=== PATIENT | female | born 1930 | race Caucasian/White ===

== ENCOUNTER → 2016-07-07 | Outpatient (CLI) | payer OTHER, MEDICAID ==
[2015-03-04 09:48] VITALS: BP 165/75
== END ==
LOC: RAD 13:23
PROVIDERS: ATTEND Internal Medicine
DX: Z12.31 Encounter for screening mammogram for malignant neoplasm of breast (principal)
CPT/HCPCS: 77067

== ENCOUNTER → 2016-10-19 | Outpatient (CLI) | payer OTHER, MEDICAID ==
[2015-03-04 09:48] VITALS: BP 165/75
[~2016-10-19] MED LIST: NS 100 ML IV 100 ML IV ONE
[2016-10-19 10:58] LABS: CREATININE 0.83 mg/dL (0.55-1.02)
--- NOTE | 2016-10-19 14:35 | CT ---
History: Acute pancreatitis with abdominal pain Study: Multi account planner CT abdomen with IV contrast Comparison: None Findings: The visualized lung bases are grossly clear. The liver and spleen and kidneys and adrenal glands are unremarkable. The gallbladder is surgically absent. There is mild biliary dilatation but no common duct stone is demonstrated. The common hepatic duct measures over centimeter in diameter. There is no pancreatic duct dilatation. The pancreas is normal in size without mass. Fat planes abou t the pancreas are normal. There is no ascites or adenopathy or aneurysm. There is no abnormal bowel distention or wall thickening or inflammation demonstrated. There is dextroscoliosis of the lumbar spine and severe diffuse degenerative disc disease. There is a moderate L1 compression fracture that appears old. It is unchanged from plain film examination of February 2015. Impression: 1. No evidence for acute disease. 2. Apparent physiologic dilatation of the biliary tree status post cholecystectomy Reported By:
== END | disposition home or self-care (01) ==
LOC: RAD 10:31
PROVIDERS: ATTEND Internal Medicine Gastroenterology
DX: K85.80 Other acute pancreatitis without necrosis or infection (principal)
CPT/HCPCS: 36415; 74160; 82565; 84520; A4222

== ENCOUNTER → 2016-11-03 | Outpatient (CLI) | payer OTHER, MEDICAID ==
[2015-03-04 09:48] VITALS: BP 165/75
--- NOTE | 2016-11-03 12:02 | NM ---
HISTORY: Abdominal pain. Clinical concern for gastroparesis/gastric emptying disorder. Nuclear medicine gastric emptying study. Findings: For the purposes of this gastric emptying study, 0.5 mCi of technetium 99m colloid was labeled to fo od and administered to the patient, orally. The patient was imaged in the supine position, and image s were obtained sequentially to evaluate gastric imaging. Regions of interest were selected over the stomach as well as over appropriate background regions prior to calculating the gastric emptying goodrich lf-time curve. Imaging was taken out to 90 minutes. The gastric emptying half time for this procedur e, as calculated, was actually accelerated (as the normal half-life ranges between 45 and 110 minute s, depending on the specific nuclear medicine laboratory standards). No radiotracer gastroesophageal reflux was identified on this examination. IMPRESSION: Accelerated gastric emptying half-time of 4 minutes. This finding can be seen with dumping syndrome, hyperthyroidism, pro-kinetic medications, etc. Please clinically correlate. Reported By:
== END ==
LOC: RAD 09:17
PROVIDERS: ATTEND Internal Medicine
DX: R11.2 Nausea with vomiting, unspecified (principal); R10.84 Generalized abdominal pain; E11.9 Type 2 diabetes mellitus without complications
CPT/HCPCS: 78264

== ENCOUNTER 2017-01-20 07:52 | Day surgery (SDC) | payer OTHER, MEDICAID ==
[2017-01-20] MEDS ORDERED: LR 1000 ML IV 1,000 ML IV ONE (08:02)
[2017-01-20] MEDS ORDERED: DIPRIVAN VIAL 20 ML ONE (10:37)
[2017-01-20 11:30] VITALS: BP 124/83
== END 2017-01-20 11:15 | disposition home or self-care (01) ==
LOC: SURG1 07:52
PROVIDERS: ATTEND Internal Medicine Gastroenterology
PROC: 0DJ08ZZ Inspection of Upper Intestinal Tract, Via Natural or Artificial Opening Endoscopic (ICD-10-PCS; principal; 2017-01-20 09:00)
PROC: 0DB68ZX Excision of Stomach, Via Natural or Artificial Opening Endoscopic, Diagnostic (ICD-10-PCS; principal; 2017-01-20 09:00)
PROC: 0DB88ZX Excision of Small Intestine, Via Natural or Artificial Opening Endoscopic, Diagnostic (ICD-10-PCS; principal; 2017-01-20 09:00)
DX: R10.13 Epigastric pain (principal); R11.0 Nausea; K21.9 Gastro-esophageal reflux disease without esophagitis; K20.8 Other esophagitis; K29.60 Other gastritis without bleeding; K85.90 Acute pancreatitis without necrosis or infection, unspecified
CPT/HCPCS: 99100; A4217; J3490; J7120

== ENCOUNTER 2018-09-12 15:25 | Inpatient (IN) ==
[2018-09-12 18:18] VITALS: BMI 27.9
[2018-09-12] MEDS ORDERED: TUSSIONEX PENNKINETIC SUSP PO PRN (18:20)
[2018-09-12] MEDS ORDERED: LEVAQUIN PREMIX IV 500 MG 500 MG/100 ML BAG IV SCH (18:20)
[2018-09-12] MEDS ORDERED: FORTAZ or TAZICEF VIAL INJ IVP SCH (18:20)
[2018-09-12] MEDS ORDERED: NS 1/2 1000 ML IV 1,000 ML ONE (18:39)
[2018-09-12] MEDS: NS 1/2 1000 ML IV 1,000 ML IV SCH (18:41)
[2018-09-12] MEDS: ROBITUSSIN DM PO SCH ×2 (18:42→20:41)
[2018-09-12] MEDS: VSL#3 PO SCH (18:42)
[2018-09-12] MEDS ORDERED: SALINE 3% 15 ML NEB TX NEB ONE (19:03)
--- NOTE | 2018-09-12 19:14 | DR.H&P ---
H&P - History & Physical for Day of: H&P Date: 09/12/18 - Chief Complaint Chief Complaint: C/C/C, FEVER - History of Present Illness History of Present Illness: IS A 87 YEAR OLD PATIENT OF OURS. SHE PRESENTED TO THE HOSPITAL A DIRECT ADMISSION DUE TO COMPLAINTS OF PERSISTENT COUGH, CONGESTION, SHORTNESS OF BREATH, AND FEVER FOR THE PAST WEEK. SHE REPORTS A PROGRESSIVE WORSENING OF SYMPTOMS DESPITE COMPLIANCE WITH BREATHING TREATMENTS CIPRO 500MG IV PO BID X 2 WEEKS AT HOME. ON ARRIVAL TO THE HOSPITAL, VITALS WERE: 97.9-69-18-98%-153/65. LABS WERE OBTAINED. ABNORMAL LAB VALUES INCLUDE THE FOLLOWING: HGB 11.1, HCT 33.3, BUN 19, GLUCOSE 108, AST 8, ALT 11, ALBUMIN 3.3. BLOOD CULTURES OBTAINED. WE WILL OBTAIN A SPUTUM CULTURE. SHE WAS STARTED ON 1/2NS AT 75ML/HR, LEVAQUIN 500MG IV DAILY, FORTAZ 1G IV Q8H, AND RESPIRATORY TREATMENTS FOR TREATMENT OF BRONCHOPNEUMONIA. OTHERWISE, WE PLAN TO FOLLOW UP WITH AM LABS AND CHEST XRAY AND CONTINUE TO MONITOR. - Past Medical History Past Medical History: Diabetes, Hypertension, Hypothyroidism - Past Surgical History Surgical History: Hysterectomy - Family History Family Medical History: Cancer, Sudden Cardiac , Hypertension - Social History Have you used tobacco products in the last 12 months: No Does any household member use tobacco: No Alcohol Use: None Drug Use: None Prescription drug monitoring program results: PDMP reviewed and no concerns identified - Medications Home Medications: MS CI Pigment Blue 63 [From Cymbalta] Allergy (Verified 09/12/18 18:18) MS Duloxetine [From Cymbalta] Allergy (Verified 09/12/18 18:18) MS Tetanus Toxoid [Tetanus Toxoid] Allergy (Verified 09/12/18 18:18) - Review of Systems Constitutional: Fever, Chills, Weakness Eyes: No Symptoms Reported ENT: No Symptoms Reported Respiratory: See HPI, Cough, Shortness of Breath, SOB with Excertion, Wheezing Cardiovascular: Light Headedness Gastrointestinal: No Symptoms Reported Genitourinary: No Symptoms Reported Musculoskeletal: No Symptoms Reported Skin: No Symptoms Reported Neurological: Weakness - Physical Exam Vital Signs: Temperature 97.9 F Pulse Rate [Right Brachial] 69 Pulse Rate 63 Respiratory Rate 18 Blood Pressure [Left Arm] 165/75 Blood Pressure [Right Arm] 153/65 Blood Pressure 124/83 O2 Sat by Pulse Oximetry 100 Oriented: Normal Eyes: Normal Ear: Normal Nose: Normal Throat: Normal Respiratory: Wheezes Throughout Cardiovascular: Normal. negative: S3, S4, Murmur : Normal Auscultation: Bowel Sounds: Normal Palpation: Normal Tenderness: Normal Skin: Normal Musculoskeletal: Normal Psychiatric: Normal Mood Description: Calm Affect: Normal Speech Pattern: Clear - Assessment/Plan (1) Bronchopneumonia Status: Acute Plan: PNEUMONIA PROTOCOL WITH IV FORTAZ, IV LEVAQUIN, RESPIRATORY TX, SUPPLEM ENTAL OXYGEN, CONTINUE TO MONITOR - Allergies Allergies/Adverse Reactions: Allergies Allergy/AdvReac Type Severity Reaction Status Date / Time duloxetine [From Cymbalta] Allergy Verified 09/13/18 00:47 Tetanus Vaccines and Toxoid Allergy Verified 09/13/18 00:47
[2018-09-12 19:16] LABS: BASOPHILS % (AUTO) 0.7 % (0.2-1.0); EOSINOPHILS # (AUTO) 0.3 x10^3/uL (0.0-0.2); EOSINOPHILS % (AUTO) 4.2 % (0.9-2.9); HEMATOCRIT 33.3 % (36.0-47.0); HEMOGLOBIN 11.1 g/dL (12.0-16.0); LYMPHOCYTES # (AUTO) 2.2 X10^3/uL (1.3-2.9); LYMPHOCYTES % (AUTO) 32.6 % (21.0-51.0); MEAN CORPUSCULAR HEMOGLOBIN 28.7 pg (27.0-34.0); MEAN CORPUSCULAR HGB CONC 33.4 g/dL (33.0-35.0); MEAN CORPUSCULAR VOLUME 85.9 fL (80.0-100.0); MONOCYTES # (AUTO) 0.5 x10^3/uL (0.3-0.8); MONOCYTES % (AUTO) 7.9 % (0.0-13.0); NEUTROPHILS # (AUTO) 3.7 x10^3/uL (2.2-4.8); NEUTROPHILS % (AUTO) 54.6 % (42.0-75.0); PLATELET COUNT 276 X10^3/uL (150.0-450.0); RED BLOOD COUNT 3.87 X10^6/uL (3.5-5.4); RED CELL DISTRIBUTION WIDTH 15.7 % (11.6-16.5); WHITE BLOOD COUNT 6.7 X10^3/uL (3.6-10.0)
[2018-09-12 19:25] LABS: ALANINE AMINOTRANSFERASE 11 Units/L (12-78); ALBUMIN 3.3 g/dL (3.4-5.0); ALKALINE PHOSPHATASE 68 Units/L (46-116); ASPARTATE AMINO TRANSFERASE 8 Units/L (15-37); BLOOD UREA NITROGEN 19 mg/dL (7-18); CALCIUM 10.1 mg/dL (8.5-10.1); CARBON DIOXIDE 27.4 mmol/L (21-32); CHLORIDE 105 mmol/L (98-107); COR CA(FOR HYPOALB) 10.7 mg/dL (8.5-10.1); CREATININE 0.98 mg/dL (0.55-1.02); SODIUM 143 mmol/L (136-145); eGFR NON BLACK RACES 57 (>60)
--- NOTE | 2018-09-12 20:06 | RAD ---
HISTORY: Pneumonia Study: Single view of the chest. Comparison: None. Findings: The cardiomediastinal silhouette is normal. No focal consolidations, pleural effusions or pneumothorax. Osseous structures demonstrate no acute abnormality. IMPRESSION: 1. No acute cardiopulmonary process. Reported By:
[2018-09-12] MEDS: FORTAZ or TAZICEF VIAL INJ IVP SCH (20:41)
[2018-09-12] MEDS: LEVAQUIN PREMIX IV 500 MG 500 MG/100 ML BAG IV SCH (20:41)
[2018-09-12] MEDS: NEURONTIN CAP 300 MG PO PRN (20:55)
[2018-09-12] MEDS: DUONEB 0.5 MG/3 MG NEB SCH (21:16)
[2018-09-13] MEDS ORDERED: NORCO 5/325 MG TAB ONE (00:50)
[2018-09-13] MEDS: NORCO 5/325 MG TAB PO PRN ×2 (00:59→21:09)
[2018-09-13] MEDS ORDERED: NS 1/2 1000 ML IV 1,000 ML ONE (04:32)
[2018-09-13] MEDS: FORTAZ or TAZICEF VIAL INJ IVP SCH ×3 (05:52→21:10)
[2018-09-13 06:28] LABS: BASOPHILS % (AUTO) 0.4 % (0.2-1.0); EOSINOPHILS # (AUTO) 0.3 x10^3/uL (0.0-0.2); EOSINOPHILS % (AUTO) 4.2 % (0.9-2.9); HEMATOCRIT 29.2 % (36.0-47.0); HEMOGLOBIN 9.8 g/dL (12.0-16.0); LYMPHOCYTES # (AUTO) 2.5 X10^3/uL (1.3-2.9); LYMPHOCYTES % (AUTO) 38.3 % (21.0-51.0); MEAN CORPUSCULAR HEMOGLOBIN 28.6 pg (27.0-34.0); MEAN CORPUSCULAR HGB CONC 33.6 g/dL (33.0-35.0); MEAN CORPUSCULAR VOLUME 84.9 fL (80.0-100.0); MEAN PLATELET VOLUME 8.6 fL (7.4-11.0); MONOCYTES # (AUTO) 0.5 x10^3/uL (0.3-0.8); MONOCYTES % (AUTO) 7.2 % (0.0-13.0); NEUTROPHILS # (AUTO) 3.2 x10^3/uL (2.2-4.8); NEUTROPHILS % (AUTO) 49.9 % (42.0-75.0); PLATELET COUNT 236 X10^3/uL (150.0-450.0); RED BLOOD COUNT 3.44 X10^6/uL (3.5-5.4); RED CELL DISTRIBUTION WIDTH 15.3 % (11.6-16.5); WHITE BLOOD COUNT 6.5 X10^3/uL (3.6-10.0)
[2018-09-13 06:42] LABS: ALANINE AMINOTRANSFERASE 10 Units/L (12-78); ALBUMIN 2.8 g/dL (3.4-5.0); ALKALINE PHOSPHATASE 56 Units/L (46-116); ASPARTATE AMINO TRANSFERASE 8 Units/L (15-37); BLOOD UREA NITROGEN 17 mg/dL (7-18); CALCIUM 9.2 mg/dL (8.5-10.1); CARBON DIOXIDE 26.2 mmol/L (21-32); CHLORIDE 105 mmol/L (98-107); COR CA(FOR HYPOALB) 10.2 mg/dL (8.5-10.1); CREATININE 0.91 mg/dL (0.55-1.02); SODIUM 141 mmol/L (136-145); TOTAL PROTEIN 6.1 g/dL (6.4-8.2); eGFR NON BLACK RACES > 60 (>60)
[2018-09-13] MEDS: DUONEB 0.5 MG/3 MG NEB SCH ×4 (08:20→20:36)
--- NOTE | 2018-09-13 08:28 | RAD ---
HISTORY: Pneumonia Study: Single-view chest, done portably Comparison: 09/12/2018. Findings: Trachea is midline. There is cardiomegaly with aortic uncoiling . Very mild bronchitic changes are present bilaterally with peribronchial cuffing. No consolidation, CHF, pleural fluid or pneumothorax is seen. No acute osseous changes are seen. IMPRESSION: Hypertensive configuration. Very mild bronchitic changes are present bilaterally without consolidation or CHF. Reported By:
[2018-09-13] MEDS ORDERED: PHARMACY CONSULT - DOSE _____ XX SCH (09:00)
[2018-09-13] MEDS: ROBITUSSIN DM PO SCH ×4 (09:48→21:09)
[2018-09-13] MEDS: VSL#3 PO SCH (09:49)
[2018-09-13] MEDS: NS 1/2 1000 ML IV 1,000 ML IV SCH (09:49)
[2018-09-13] MEDS: PROGESTERONE MICRONIZED 200 MG PO SCH ×2 (11:00→16:26)
[2018-09-13] MEDS: ALBUMIN HUMAN 25%- 100 ML 100 ML IV SCH (12:00)
[2018-09-13] MEDS: PROCALAMINE 3 % 1,000 ML IV SCH (12:00)
[2018-09-13] MEDS: NEURONTIN CAP 300 MG PO PRN ×2 (12:01→21:11)
[2018-09-13] MEDS: WELCHOL PO SCH ×2 (12:02→21:10)
[2018-09-13] MEDS: PriLOSEC PO SCH ×2 (12:02→21:10)
[2018-09-13] MEDS: REGLAN TAB 10 MG PO SCH ×3 (12:03→21:11)
[2018-09-13] MEDS: ASPIRIN 81 MG CHEWTAB PO SCH (12:03)
[2018-09-13] MEDS: XARELTO PO SCH ×2 (12:04→21:11)
[2018-09-13] MEDS: COZAAR PO SCH (12:05)
[2018-09-13] MEDS: MAXZIDE 37.5/25 MG PO SCH (12:06)
--- NOTE | 2018-09-13 12:17 | VAS ---
Exam: Carotid Doppler exam History: 87-year-old female with ataxia. Evaluate for possible carotid artery stenosis. Comparison: None Findings: Mild degree of plaque is present in both carotid systems. On the right, peak systolic velocities in cm/sec of the right internal and common carotid arteries measure 44 and 88 respectively. The greatest ICA/CCA ratio on the right is 0.50 On the left, peak systolic velocities in cm/sec of the left internal and common carotid arteries measure 40 and 83 respectively. The greatest ICA/CCA ratio on the left is 0.48 Antegrade flow is documented in patent vertebral arteries bilaterally. Impression: No hemodynamically significant carotid stenosis is seen on either side. Reported By:
[2018-09-13] MEDS: COSOPT OPTH OP SCH ×2 (14:51→21:50)
--- NOTE | 2018-09-13 14:54 | MRI ---
MRI brain without contrast Indication: Altered mental status, weakness, ataxia Comparison: 10/18/2012 Technique: Multiplanar, multisequence MR images of the brain were obtained without contrast. Findings: There is age-appropriate generalized cortical involution with concomitant ventricular and sulcal enlargement, similar to prior. There is no evidence for acute or subacute infarct. There is no acute bleed, mass, mass effect, or abnormal extra-axial collection. The major intracranial flow voids are noted. The orbits appear unremarkable. There is minimal bilateral maxillary sinus mucosal thickening, without fluid level. Impression: No acute intracranial abnormality or significant change from prior. Reported By:
[2018-09-13] MEDS: PATIENT'S HOME MEDICATION (Mirabegron [Myrbetriq] 50 MG) PO SCH (16:26)
[2018-09-13] MEDS: SYNTHROID 100 mcg TAB PO SCH (17:58)
[2018-09-13] MEDS: HumuLIN R SUBCUT PRN ×2 (17:59→21:13)
--- NOTE | 2018-09-13 19:37 | PCM.PROG ---
Progress Note - Progress Note for Day of Date of Exam: 09/13/18 - Subjective Subjective: WAS ADMITTED FOR TREATMENT OF BRONCHOPNEUMONIA. TODAY, SHE IS ALERT AND ORIENTED, LYING IN BED ON MORNING ROUNDS. SHE CONTINUES WITH COMPLAINTS OF A PERSISTENT COUGH AND NAUSEA. SHE STATES THAT COUGH HAS BEEN NON- PRODUCTIVE THROUGHOUT THE NIGHT. SHE ALSO CONTINUES WITH SHORTNESS OF BREATH. PATIENT REPORTS WEAKNESS, DIZZINESS, AND UNSTEADY GAIT FOR THE PAST FEW WEEKS. SHE REPORTS NEARLY PASSING OUT AT HOME SEVERAL TIMES. ON EXAMINATION, HEART IS REGULAR IN RATE AND RHYTHM. BILATERAL LUNGS ARE NOTED WITH SCATTERED WHEEZING. ABDOMEN IS ROUND, SOFT, AND NON-TENDER WITH NORMAL BOWEL SOUNDS NOTED IN ALL QUADRANTS. HER VITALS THIS MORNING ARE: 98.0-68-18-96%-144/74. LABS WERE OBTA INED. ABNORMAL LAB VALUES INCLUDE THE FOLLOWING: HGB 11.1, HCT 33.3, BUN 19, GLUCOSE 108, AST 8, ALT 11, ALBUMIN 3.3. BLOOD CULTURES ARE PENDING. A CHEST XRAY WAS OBTAINED TODAY AND REVEALED: Hypertensive configuration. Very mild bronchitic changes are present bilaterally without consolidation or CHF. SHE IS CURRENTLY RECEIVING IV FLUIDS, IV ANTIBIOTICS, AND RESPIRATORY TREATMENTS. TODAY, WE WILL START PROCAL AND ALBUMIN DUE TO PROTEIN DEFICIENCY. WE WILL OBTAIN A GASTRIC EMPTY STUDY, BRAIN MRI, ECHO, AND CAROTID DOPPLER. OTHERWISE, WE WILL FOLLOW UP WITH AM LABS AND CONTINUE TO [facility]. - Past Medical Family Social History Past Med/Fam/Surg Hx: No changes since H&P Allergies: Allergies duloxetine [From Cymbalta] Allergy (Verified 09/13/18 00:47) Tetanus Vaccines and Toxoid Allergy (Verified 09/13/18 00:47) - Review of Systems ROS: No change since H&P - Vital Signs and I&O's Vital Signs: Temperature 98.1 F Pulse Rate [Right Brachial] 66 Pulse Rate 63 Respiratory Rate 18 Blood Pressure [Left Arm] 165/75 Blood Pressure [Right Arm] 138/71 Blood Pressure 124/83 O2 Sat by Pulse Oximetry 100 Intake and Output: Intake & Output 09/11/18 09/12/18 09/13/18 09/14/18 11:59 11:59 11:59 11:59 Intake Total 1575 / 1575 1373 / 1373 Balance 1575 / 1575 1373 / 1373 - Physical Exam Oriented: Normal Eyes: Normal Ear: Normal Nose: Normal Throat: Normal Respiratory: Generalized, Wheezes Cardiovascular: Normal. negative: S3, S4, Murmur : Normal Auscultation: Bowel Sounds: Normal Palpation: Normal Tenderness: Normal, Diffuse Skin: Normal Musculoskeletal: Normal Psychiatric: Normal Mood Description: Calm Affect: Normal Speech Pattern: Clear - Laboratory and Diagnostics Result Diagrams: 09/13/18 05:13 09/13/18 05:13 Labs: Laboratory WBC 6.5 X10^3/uL (3.6-10.0) 09/13/18 05:13 RBC 3.44 X10^6/uL (3.5-5.4) L 09/13/18 05:13 Hgb 9.8 g/dL (12.0-16.0) L 09/13/18 05:13 Hct 29.2 % (36.0-47.0) L 09/13/18 05:13 MCV 84.9 fL (80.0-100.0) 09/13/18 05:13 MCH 28.6 pg (27.0-34.0) 09/13/18 05:13 MCHC 33.6 g/dL (33.0-35.0) 09/13/18 05:13 RDW 15.3 % (11.6-16.5) 09/13/18 05:13 Plt Count 236 X10^3/uL (150.0-450.0) 09/13/18 05:13 MPV 8.6 fL (7.4-11.0) 09/13/18 05:13 Neut % (Auto) 49.9 % (42.0-75.0) 09/13/18 05:13 Lymph % (Auto) 38.3 % (21.0-51.0) 09/13/18 05:13 [place] % (Auto) 7.2 % (0.0-13.0) 09/13/18 05:13 Eos % (Auto) 4.2 % (0.9-2.9) H 09/13/18 05:13 Baso % (Auto) 0.4 % (0.2-1.0) 09/13/18 05:13 Neut # (Auto) 3.2 x10^3/uL (2.2-4.8) 09/13/18 05:13 Lymph # (Auto) 2.5 X10^3/uL (1.3-2.9) 09/13/18 05:13 [place] # (Auto) 0.5 x10^3/uL (0.3-0.8) 09/13/18 05:13 Eos # (Auto) 0.3 x10^3/uL (0.0-0.2) H 09/13/18 05:13 Baso # (Auto) 0.0 X10^3/uL (0.0-0.1) 09/13/18 05:13 Absolute Nucleated RBC 0.0 /100WBC 09/13/18 05:13 Sodium 141 mmol/L (136-145) 09/13/18 05:13 Corrected Sodium TNP 09/13/18 05:13 Potassium 3.8 mmol/L (3.5-5.1) 09/13/18 05:13 Chloride 105 mmol/L (98-107) 09/13/18 05:13 Carbon Dioxide 26.2 mmol/L (21-32) 09/13/18 05:13 BUN 17 mg/dL (7-18) 09/13/18 05:13 Creatinine 0.91 mg/dL (0.55-1.02) 09/13/18 05:13 Est GFR (MDRD) Af Amer > 60 (>60) 09/13/18 05:13 Est GFR (MDRD) Non-Af > 60 (>60) 09/13/18 05:13 Glucose 74 mg/dL (65-99) 09/13/18 05:13 POC Glucose (mg/dL) 80 mg/dL (65-99) 09/13/18 05:47 Calcium 9.2 mg/dL (8.5-10.1) 09/13/18 05:13 Corrected Calcium 10.2 mg/dL (8.5-10.1) H 09/13/18 05:13 Total Bilirubin 0.40 mg/dL (0.2-1.0) 09/13/18 05:13 AST 8 Units/L (15-37) L 09/13/18 05:13 ALT 10 Units/L (12-78) L 09/13/18 05:13 Alkaline Phosphatase 56 Units/L (46-116) 09/13/18 05:13 Total Protein 6.1 g/dL (6.4-8.2) L 09/13/18 05:13 Albumin 2.8 g/dL (3.4-5.0) L 09/13/18 05:13 Globulin 3.3 g/dL (2.5-4.5) 09/13/18 05:13 Albumin/Globulin Ratio 0.8 Ratio (1.1-2.1) L 09/13/18 05:13 - Plan (1) Bronchopneumonia Status: Acute Plan: PNEUMONIA PROTOCOL WITH IV FORTAZ, IV LEVAQUIN, RESPIRATORY TX, SUPPLEMENTAL OXYGEN, CONTINUE TO MONITOR (2) Ataxia Status: Chronic Plan: OBTAIN BRAIN MRI, CAROTID, ECHO, CONTINUE TO MONITOR (3) Dizziness Status: Acute (4) Generalized weakness Status: Acute (5) Protein deficiency Status: Acute Plan: PROCAL IV, ALBUMIN 25% IV DAILY, CONTINUE TO MONITOR (6) Diabetes mellitus, type 2 Status: Chronic Qualifiers: Diabetes mellitus complication status: with skin complications Diabetes mellitus complication detail: with foot ulcer Qualified Code(s): E11.621 - Type 2 diabetes mellitus with foot ulcer Plan: CONTINUE HOME MEDS, GASTRIC EMPTYING, MONITOR OTBS
[2018-09-13] MEDS: ZOCOR TAB 40 MG PO SCH (21:12)
[2018-09-13] MEDS: SNACK - Diabetic Appropriate PO SCH (21:12)
[2018-09-13] MEDS: XALATAN OP SCH (21:12)
[2018-09-13] MEDS: LEVAQUIN PREMIX IV 500 MG 500 MG/100 ML BAG IV SCH (21:51)
[2018-09-14] MEDS ORDERED: NS 1/2 1000 ML IV 1,000 ML ONE ×2 (02:47→20:45)
[2018-09-14] MEDS: NS 1/2 1000 ML IV 1,000 ML IV SCH ×4 (03:28→20:55)
[2018-09-14] MEDS: FORTAZ or TAZICEF VIAL INJ IVP SCH ×3 (04:50→20:57)
[2018-09-14] MEDS: REGLAN TAB 10 MG PO SCH ×4 (06:08→20:57)
--- NOTE | 2018-09-14 06:13 | RAD ---
HISTORY: Shortness of breath Study: Chest AP portable Comparison: 09/13/2018 Findings: The heart is enlarged. No congestive heart failure is noted. The lungs are free of acute alveolar infiltrates. No pleural effusions are identified. The bony thorax is unremarkable. IMPRESSION: Continued cardiomegaly without congestive heart failure No acute infiltrates Reported By:
[2018-09-14 06:48] LABS: BASOPHILS % (AUTO) 0.6 % (0.2-1.0); EOSINOPHILS # (AUTO) 0.3 x10^3/uL (0.0-0.2); EOSINOPHILS % (AUTO) 4.8 % (0.9-2.9); HEMATOCRIT 27.1 % (36.0-47.0); HEMOGLOBIN 9.2 g/dL (12.0-16.0); LYMPHOCYTES # (AUTO) 1.9 X10^3/uL (1.3-2.9); LYMPHOCYTES % (AUTO) 31.9 % (21.0-51.0); MEAN CORPUSCULAR HEMOGLOBIN 29.1 pg (27.0-34.0); MEAN CORPUSCULAR HGB CONC 34.1 g/dL (33.0-35.0); MEAN CORPUSCULAR VOLUME 85.3 fL (80.0-100.0); MEAN PLATELET VOLUME 8.6 fL (7.4-11.0); MONOCYTES # (AUTO) 0.4 x10^3/uL (0.3-0.8); NEUTROPHILS # (AUTO) 3.3 x10^3/uL (2.2-4.8); NEUTROPHILS % (AUTO) 55.7 % (42.0-75.0); PLATELET COUNT 218 X10^3/uL (150.0-450.0); RED BLOOD COUNT 3.17 X10^6/uL (3.5-5.4); RED CELL DISTRIBUTION WIDTH 15.5 % (11.6-16.5)
[2018-09-14 07:18] LABS: ALANINE AMINOTRANSFERASE 9 Units/L (12-78); ALKALINE PHOSPHATASE 48 Units/L (46-116); ASPARTATE AMINO TRANSFERASE 12 Units/L (15-37); BLOOD UREA NITROGEN 12 mg/dL (7-18); CALCIUM 9.3 mg/dL (8.5-10.1); CARBON DIOXIDE 25.2 mmol/L (21-32); CHLORIDE 106 mmol/L (98-107); COR CA(FOR HYPOALB) 10.1 mg/dL (8.5-10.1); COR NA(FOR HYPERGLY) 143 mmol/L (136-145); CREATININE 0.96 mg/dL (0.55-1.02); SODIUM 142 mmol/L (136-145); TOTAL PROTEIN 6.2 g/dL (6.4-8.2); eGFR NON BLACK RACES 59 (>60)
[2018-09-14] MEDS: DUONEB 0.5 MG/3 MG NEB SCH ×2 (09:03→12:29)
[2018-09-14] MEDS: COSOPT OPTH OP SCH ×2 (10:09→20:59)
[2018-09-14] MEDS: PriLOSEC PO SCH ×2 (10:10→20:57)
[2018-09-14] MEDS: ALBUMIN HUMAN 25%- 100 ML 100 ML IV SCH (10:10)
[2018-09-14] MEDS: ROBITUSSIN DM PO SCH ×4 (10:11→20:57)
[2018-09-14] MEDS: XARELTO PO SCH ×2 (10:11→20:56)
[2018-09-14] MEDS: MAXZIDE 37.5/25 MG PO SCH (10:11)
[2018-09-14] MEDS: NEURONTIN CAP 300 MG PO PRN ×2 (10:11→20:57)
[2018-09-14] MEDS: VSL#3 PO SCH (10:11)
[2018-09-14] MEDS: WELCHOL PO SCH ×2 (10:11→20:57)
[2018-09-14] MEDS: COZAAR PO SCH (10:13)
[2018-09-14] MEDS: ASPIRIN 81 MG CHEWTAB PO SCH (10:14)
[2018-09-14] MEDS: PATIENT'S HOME MEDICATION (Mirabegron [Myrbetriq] 50 MG) PO SCH (12:37)
[2018-09-14] MEDS: PROGESTERONE MICRONIZED 200 MG PO SCH ×2 (12:38→19:21)
[2018-09-14] MEDS: SYNTHROID 100 mcg TAB PO SCH (17:06)
[2018-09-14] MEDS: XOPENEX 1.25 MG/3 ML NEBULE NEB SCH (17:15)
[2018-09-14] MEDS: SNACK - Diabetic Appropriate PO SCH (20:45)
[2018-09-14] MEDS: PROCALAMINE 3 % 1,000 ML IV SCH (20:56)
[2018-09-14] MEDS: ZOCOR TAB 40 MG PO SCH (20:57)
[2018-09-14] MEDS: HumuLIN R SUBCUT PRN (20:58)
[2018-09-14] MEDS: XALATAN OP SCH (20:59)
[2018-09-14] MEDS: LEVAQUIN PREMIX IV 500 MG 500 MG/100 ML BAG IV SCH (21:01)
[2018-09-15] MEDS: XOPENEX 1.25 MG/3 ML NEBULE NEB SCH ×2 (00:54→05:05)
[2018-09-15] MEDS: NS 1/2 1000 ML IV 1,000 ML IV SCH ×2 (02:27→02:28)
[2018-09-15] MEDS: FORTAZ or TAZICEF VIAL INJ IVP SCH (04:30)
[2018-09-15] MEDS: REGLAN TAB 10 MG PO SCH (05:55)
--- NOTE | 2018-09-15 06:02 | RAD ---
Chest, one view Indication: Shortness of breath Comparison: 09/14/2018 Findings: Cardiac silhouette is borderline enlarged without congestive failure. No focal infiltrate or significant effusion is identified. No pneumothorax. Impression: Mild cardiomegaly without acute chest process. Reported By:
[2018-09-15 06:06] LABS: BASOPHILS % (AUTO) 0.5 % (0.2-1.0); EOSINOPHILS # (AUTO) 0.4 x10^3/uL (0.0-0.2); HEMOGLOBIN 10.3 g/dL (12.0-16.0); LYMPHOCYTES # (AUTO) 2.1 X10^3/uL (1.3-2.9); LYMPHOCYTES % (AUTO) 26.8 % (21.0-51.0); MEAN CORPUSCULAR HGB CONC 34.2 g/dL (33.0-35.0); MEAN CORPUSCULAR VOLUME 84.8 fL (80.0-100.0); MEAN PLATELET VOLUME 8.5 fL (7.4-11.0); MONOCYTES # (AUTO) 0.4 x10^3/uL (0.3-0.8); MONOCYTES % (AUTO) 5.4 % (0.0-13.0); NEUTROPHILS # (AUTO) 4.8 x10^3/uL (2.2-4.8); NEUTROPHILS % (AUTO) 62.3 % (42.0-75.0); PLATELET COUNT 232 X10^3/uL (150.0-450.0); RED BLOOD COUNT 3.54 X10^6/uL (3.5-5.4); RED CELL DISTRIBUTION WIDTH 15.7 % (11.6-16.5); WHITE BLOOD COUNT 7.7 X10^3/uL (3.6-10.0)
[2018-09-15 06:28] LABS: ALANINE AMINOTRANSFERASE 9 Units/L (12-78); ALBUMIN 3.4 g/dL (3.4-5.0); ALKALINE PHOSPHATASE 51 Units/L (46-116); ASPARTATE AMINO TRANSFERASE 6 Units/L (15-37); BLOOD UREA NITROGEN 13 mg/dL (7-18); CALCIUM 9.9 mg/dL (8.5-10.1); CARBON DIOXIDE 25.9 mmol/L (21-32); CHLORIDE 105 mmol/L (98-107); COR NA(FOR HYPERGLY) 143 mmol/L (136-145); CREATININE 0.91 mg/dL (0.55-1.02); SODIUM 141 mmol/L (136-145); TOTAL PROTEIN 6.8 g/dL (6.4-8.2); eGFR NON BLACK RACES > 60 (>60)
[2018-09-15] MEDS: ALBUMIN HUMAN 25%- 100 ML 100 ML IV SCH (08:38)
[2018-09-15] MEDS: COZAAR PO SCH (08:39)
[2018-09-15] MEDS: PriLOSEC PO SCH (08:39)
[2018-09-15] MEDS: VSL#3 PO SCH (08:39)
[2018-09-15] MEDS: MAXZIDE 37.5/25 MG PO SCH (08:39)
[2018-09-15] MEDS: WELCHOL PO SCH ×2 (08:39→08:44)
[2018-09-15] MEDS: ROBITUSSIN DM PO SCH ×2 (08:39→08:53)
[2018-09-15] MEDS: XARELTO PO SCH (08:40)
[2018-09-15] MEDS: ASPIRIN 81 MG CHEWTAB PO SCH (08:40)
[2018-09-15] MEDS: PATIENT'S HOME MEDICATION (Mirabegron [Myrbetriq] 50 MG) PO SCH (08:52)
[2018-09-15] MEDS: COSOPT OPTH OP SCH (08:53)
[2018-09-15] MEDS: PROGESTERONE MICRONIZED 200 MG PO SCH (08:53)
[2018-09-15 11:22] VITALS: BP 149/65
== END 2018-09-15 12:15 | disposition home or self-care (01) | DRG 195 ==
LOC: MED/SURG 17:29
PROVIDERS: ADMIT Internal Medicine; ATTEND Internal Medicine
DX: E11.65 Type 2 diabetes mellitus with hyperglycemia; J18.0 Bronchopneumonia, unspecified organism; E03.8 Other specified hypothyroidism; I10 Essential (primary) hypertension; R26.89 Other abnormalities of gait and mobility
CPT/HCPCS: 36415; 70551; 71010; 71045; 80053; 85025; 87040; 93306; 93880; 94640; 94760; 97110; 97162; 97166; 97535; A4222; B5200; P9047; J0713; J1815; J1956; J7620

== ENCOUNTER 2022-07-03 17:25 | Observation (INO) ==
--- NOTE | 2022-07-03 17:45 | DR.EXTPAIN ---
HPI Time seen Time Seen by Provider: 07/03/22 17:43 HPI Comment HPI Comment: PATIENT IS 89YR OLD FEMALE IN ER VIA EMS AFTER FALLINH AT HOME TWICE IN Nurses notes reviewed Nurses Notes Review: Yes PMH PMH Past Medical History: Diabetes, Hypertension and Hypothyroidism Past Surgical History: Yes Surgical History: Hysterectomy Family History Family Medical History: Cancer, Sudden Cardiac and Hypertension Social History Do you use any recreational Drugs:: No PE Vital Signs Vitals: Temperature 98.5 F Pulse Rate 82 Respiratory Rate 20 Blood Pressure [Left Arm] 160/82 Blood Pressure [Right Arm] 149/65 Blood Pressure 162/67 O2 Sat by Pulse Oximetry 98 ROR Labs Reviewed Result Diagrams: 07/03/22 18:38 07/03/22 18:38 Laboratory: WBC 6.3 X10^3/uL (3.6-10.0) 07/03/22 18:38 RBC 3.63 X10^6/uL (3.5-5.4) 07/03/22 18:38 Hgb 9.2 g/dL (12.0-16.0) L 07/03/22 18:38 Hct 27.4 % (36.0-47.0) L 07/03/22 18:38 MCV 75.5 fL (80.0-100.0) L 07/03/22 18:38 MCH 25.3 pg (27.0-34.0) L 07/03/22 18:38 MCHC 33.4 g/dL (33.0-35.0) 07/03/22 18:38 RDW 18.3 % (11.6-16.5) H 07/03/22 18:38 Plt Count 134 X10^3/uL (150.0-450.0) L 07/03/22 18:38 MPV 9.5 fL (7.4-11.0) 07/03/22 18:38 Neut % (Auto) 80.3 % (42.0-75.0) H 07/03/22 18:38 Lymph % (Auto) 15.9 % (21.0-51.0) L 07/03/22 18:38 [place] % (Auto) 3.5 % (0.0-13.0) 07/03/22 18:38 Eos % (Auto) 0.1 % (0.9-2.9) L 07/03/22 18:38 Baso % (Auto) 0.2 % (0.2-1.0) 07/03/22 18:38 Neut # (Auto) 5.0 x10^3/uL (2.2-4.8) H 07/03/22 18:38 Lymph # (Auto) 1.0 X10^3/uL (1.3-2.9) L 07/03/22 18:38 [place] # (Auto) 0.2 x10^3/uL (0.3-0.8) L 07/03/22 18:38 Eos # (Auto) 0.0 x10^3/uL (0.0-0.2) 07/03/22 18:38 Baso # (Auto) 0.0 X10^3/uL (0.0-0.1) 07/03/22 18:38 Absolute Nucleated RBC 0.0 /100WBC 07/03/22 18:38 Sodium 142 mmol/L (136-145) 07/03/22 18:38 Corrected Sodium TNP 07/03/22 18:38 Potassium 3.0 mmol/L (3.5-5.1) L 07/03/22 18:38 Chloride 106 mmol/L (98-107) 07/03/22 18:38 Carbon Dioxide 25.7 mmol/L (21-32) 07/03/22 18:38 BUN 27 mg/dL (7-18) H 07/03/22 18:38 Creatinine 1.46 mg/dL (0.55-1.02) H 07/03/22 18:38 Est GFR (MDRD) Af Amer 43 (>60) L 07/03/22 18:38 Est GFR (MDRD) Non-Af 36 (>60) L 07/03/22 18:38 Glucose 43 mg/dL (65-99) L* 07/03/22 18:38 Calcium 8.3 mg/dL (8.5-10.1) L 07/03/22 18:38 Corrected Calcium 9.2 mg/dL (8.5-10.1) 07/03/22 18:38 Total Bilirubin 0.50 mg/dL (0.2-1.0) 07/03/22 18:38 AST 44 Units/L (15-37) H 07/03/22 18:38 ALT 21 Units/L (12-78) 07/03/22 18:38 Alkaline Phosphatase 46 Units/L (46-116) 07/03/22 18:38 Creatine Kinase 944 Units/L (26-192) H 07/03/22 18:38 Troponin I High Sens 47.7 ng/L (4.0-60.0) 07/03/22 18:38 Total Protein 6.5 g/dL (6.4-8.2) 07/03/22 18:38 Albumin 2.9 g/dL (3.4-5.0) L 07/03/22 18:38 Globulin 3.6 g/dL (2.5-4.5) 07/03/22 18:38 Albumin/Globulin Ratio 0.8 Ratio (1.1-2.1) L 07/03/22 18:38 Amylase 83 Units/L (25-115) 07/03/22 18:38 Lipase 460 Units/L (73-393) H 07/03/22 18:38 Specimen Type Random urine 07/03/22 19:32 Urine Color Yellow (YELLOW) 07/03/22 19:32 Urine Appearance Clear (CLEAR) 07/03/22 19:32 Urine pH 6.0 (5.0 - 8.0) 07/03/22 19:32 Ur Specific [place] 1.020 (1.000-1.030) 07/03/22 19:32 Urine Protein 2+ (NEGATIVE) 07/03/22 19:32 Urine Glucose (UA) Negative (NEGATIVE) 07/03/22 19:32 Urine Ketones Negative (NEGATIVE) 07/03/22 19:32 Urine Blood 1+ (NEGATIVE) 07/03/22 19:32 Urine Nitrite Negative (NEGATIVE) 07/03/22 19:32 Urine Bilirubin Negative (NEGATIVE) 07/03/22 19:32 Urine Urobilinogen Normal (NORMAL) 07/03/22 19:32 Ur Leukocyte Esterase Negative (NEGATIVE) 07/03/22 19:32 Urine RBC None seen /HPF (0-3) 07/03/22 19:32 Urine WBC None seen /HPF (0-5) 07/03/22 19:32 Ur Squamous Epith Cells Rare /HPF (NEGATIVE) 07/03/22 19:32 Urine Bacteria Negative /HPF (NEGATIVE) 07/03/22 19:32 Fine Granular Casts Few /LPF (NEGATIVE) 07/03/22 19:32 Ur Culture Indicated? No/not indicated 07/03/22 19:32 Opioid Opioid Risk Tool Age (Faisal box if 16-45): No History of Preadolescent Sexual Abuse: No Total: 0 Total Score Risk Category: Low Risk Copyright: Chris VALDEZ predicting aberrant behaviors Discharge Plan Diagnosis Discharge Problem: Abdominal pain, Acute pancreatitis, Nausea vomiting and diarrhea, Hip pain, right, Rhabdomyolysis Discharge Plan Patient Disposition: 09 ADMITTED INPATIENT Condition: Stable Orders to Discharge Patient Discharge Orders: Transfer (Routine); Ordered 07/03/22 Ordered By: DARLEEN MILLER
[2022-07-03] MEDS ORDERED: NS 1,000 ML IV 1,000 ML IV SCH (18:00)
[2022-07-03] MEDS ORDERED: NS 1,000 ML IV 1,000 ML ONE (18:34)
--- NOTE | 2022-07-03 18:36 | EKG ---
Test Reason : NEAR SYNCOPE Blood Pressure : */* mmHG Vent. Rate : 79 BPM Atrial Rate : 79 BPM P-R Int : 124 ms QRS Dur : 80 ms QT Int : 396 ms P-R-T Axes : * -41 -12 degrees QTc Int : 454 ms Sinus rhythm with premature supraventricular complexes and with occasional premature ventricular comp lexes Left axis deviation Inferior infarct , age undetermined Abnormal ECG No previous ECGs available Confirmed by Ran Pemberton ([id number]) on 07/04/2022 2:25:33 PM Referred By: Confirmed By: Ran Pemberton
[2022-07-03 19:06] LABS: BASOPHILS % (AUTO) 0.2 % (0.2-1.0); EOSINOPHILS % (AUTO) 0.1 % (0.9-2.9); HEMATOCRIT 27.4 % (36.0-47.0); HEMOGLOBIN 9.2 g/dL (12.0-16.0); LYMPHOCYTES % (AUTO) 15.9 % (21.0-51.0); MEAN CORPUSCULAR HEMOGLOBIN 25.3 pg (27.0-34.0); MEAN CORPUSCULAR HGB CONC 33.4 g/dL (33.0-35.0); MEAN CORPUSCULAR VOLUME 75.5 fL (80.0-100.0); MEAN PLATELET VOLUME 9.5 fL (7.4-11.0); MONOCYTES # (AUTO) 0.2 x10^3/uL (0.3-0.8); MONOCYTES % (AUTO) 3.5 % (0.0-13.0); NEUTROPHILS % (AUTO) 80.3 % (42.0-75.0); RED BLOOD COUNT 3.63 X10^6/uL (3.5-5.4); RED CELL DISTRIBUTION WIDTH 18.3 % (11.6-16.5); WHITE BLOOD COUNT 6.3 X10^3/uL (3.6-10.0)
[2022-07-03 19:18] LABS: ALANINE AMINOTRANSFERASE 21 Units/L (12-78); ALBUMIN 2.9 g/dL (3.4-5.0); ALKALINE PHOSPHATASE 46 Units/L (46-116); ASPARTATE AMINO TRANSFERASE 44 Units/L (15-37); BLOOD UREA NITROGEN 27 mg/dL (7-18); CALCIUM 8.3 mg/dL (8.5-10.1); CARBON DIOXIDE 25.7 mmol/L (21-32); CHLORIDE 106 mmol/L (98-107); COR CA(FOR HYPOALB) 9.2 mg/dL (8.5-10.1); CREATINE KINASE 944 Units/L (26-192); CREATININE 1.46 mg/dL (0.55-1.02); SODIUM 142 mmol/L (136-145); TOTAL PROTEIN 6.5 g/dL (6.4-8.2); eGFR NON BLACK RACES 36 (>60)
[2022-07-03] MEDS ORDERED: D50W ABBOJECT SYR IV ONE (19:22)
[2022-07-03] MEDS ORDERED: D50W ABBOJECT SYR ONE (19:23)
[2022-07-03 19:35] LABS: AMYLASE 83 Units/L (25-115); LIPASE 460 Units/L (73-393)
[2022-07-03 19:45] LABS: BILIRUBIN,URINE NEGATIVE (NEGATIVE); BLOOD/HEMOGLOBIN,URINE 1+ (NEGATIVE); GLUCOSE, URINE NEGATIVE (NEGATIVE); KETONES,URINE NEGATIVE (NEGATIVE); LEUKOCYTE ESTERASE ,URINE NEGATIVE (NEGATIVE); NITRITES,URINE NEGATIVE (NEGATIVE); PROTEIN,URINE 2+ (NEGATIVE); UROBILINOGEN,URINE NORMAL (NORMAL)
[2022-07-03 19:53] LABS: APPEARANCE,URINE CLEAR (CLEAR); BACTERIA,URINE NEGATIVE /HPF (NEGATIVE); COLOR,URINE YELLOW (YELLOW); FINE GRANULAR CASTS,URINE FEW /LPF (NEGATIVE); RBC,URINE NONE SEEN /HPF (0-3); SQUAMOUS EPITHELIAL CELL,UR RARE /HPF (NEGATIVE)
[2022-07-03] MEDS ORDERED: MORPHINE SULFATE INJ 2 MG INJ IVP ONE (20:14)
[2022-07-03] MEDS ORDERED: ZOFRAN INJ 4 MG VIAL IVP ONE (20:14)
[2022-07-03] MEDS ORDERED: ZOFRAN INJ 4 MG VIAL ONE (20:22)
[2022-07-03] MEDS ORDERED: MORPHINE SULFATE INJ 2 MG INJ ONE (20:22)
--- NOTE | 2022-07-03 20:57 | CT ---
HISTORYN/V/D, ABDOMINAL PAIN, DECREASED APPETITESTUDYABDOMEN/PELVIS W/O [id number]/2021.TECHNIQUEMultipl e axial images of the abdomen and pelvis were obtained from the lung bases to the pubic symphysis without the administration of IV contrast. Dose reduction techniques including Automated Exposure Control (AEC) and adjustment of mA and kV were utilized.FINDINGSThere is nonspecific bibasilar opacity which could be fibrosis or sequela of viral infection. There is no pleural effusion. Heart size is normal. The heart size is normal. Pancreas is normal. Spleen and adrenal glands are normal. Kidneys are without bone nephrosis. The stomach is. There are air-fluid levels in the small bowel but the spine abnormal. The appendix is not identified but there is no evidence for appendicitis. The large bowel is normal. Urinary bladder is normal. Uterus is been removed. There is scoliosis and degeneration in the lumbar spine. There are no worrisome bone marrow lesions.IMPRESSIONThere are air levels in the dilated small bowel there is no evidence for obstruction or ileus. Question mild enteritis.Electronically signed by: Jaren Perales (Jul 03, 2022 20:56:29)
[2022-07-03] MEDS ORDERED: MORPHINE SULFATE INJ 4 MG IVP ONE (21:57)
[2022-07-03] MEDS ORDERED: MORPHINE SULFATE INJ 4 MG ONE (21:58)
[2022-07-04] MEDS ORDERED: ZOFRAN INJ 4 MG VIAL IVP PRN (00:28)
[2022-07-04] MEDS ORDERED: K-DUR TAB 20 MEQ PO PRN (00:29)
[2022-07-04] MEDS ORDERED: K-RIDER 10 MEQ/NS 100 ML 10 MEQ/100 ML BAG IV PRN (00:29)
[2022-07-04] MEDS ORDERED: POTASSIUM CHLORIDE LIQ 20 MEQ UDC PO PRN (00:29)
[2022-07-04] MEDS ORDERED: KLOR-CON PO PRN (00:29)
[2022-07-04] MEDS ORDERED: MICRO K EXTEN CAP 10 MEQ PO PRN (00:29)
[2022-07-04] MEDS ORDERED: POTASSIUM CHL 40 MEQ/NS 0.45% 500 ML IV PRN (00:29)
[2022-07-04] MEDS ORDERED: POTASSIUM CHL 60 MEQ/NS 0.45% 500 ML IV PRN (00:29)
[2022-07-04] MEDS: MAGNESIUM SULFATE 1 GRAM/100 mL PREMIX 1 G/100 ML BAG IV PRN ×6 (01:30→11:08)
[2022-07-04] MEDS ORDERED: NYSTATIN POWDER ONE (02:07)
[2022-07-04] MEDS ORDERED: BUTT CREAM (COMPOUND) ONE (02:08)
[2022-07-04] MEDS: BUTT CREAM (COMPOUND) TOP PRN ×2 (02:30→15:30)
[2022-07-04] MEDS: NYSTATIN POWDER TOP SCH ×3 (02:50→20:50)
[2022-07-04] MEDS ORDERED: TYLENOL 325 MG TAB PO ONE (04:40)
[2022-07-04] MEDS: TYLENOL 325 MG TAB PO PRN (04:50)
[2022-07-04 05:48] LABS: BASOPHILS % (AUTO) 0.1 % (0.2-1.0); EOSINOPHILS % (AUTO) 0.1 % (0.9-2.9); HEMATOCRIT 26.1 % (36.0-47.0); HEMOGLOBIN 8.7 g/dL (12.0-16.0); LYMPHOCYTES # (AUTO) 0.5 X10^3/uL (1.3-2.9); LYMPHOCYTES % (AUTO) 10.1 % (21.0-51.0); MEAN CORPUSCULAR HGB CONC 33.3 g/dL (33.0-35.0); MEAN CORPUSCULAR VOLUME 75.3 fL (80.0-100.0); MONOCYTES # (AUTO) 0.2 x10^3/uL (0.3-0.8); MONOCYTES % (AUTO) 3.5 % (0.0-13.0); NEUTROPHILS # (AUTO) 4.6 x10^3/uL (2.2-4.8); NEUTROPHILS % (AUTO) 86.2 % (42.0-75.0); RED BLOOD COUNT 3.46 X10^6/uL (3.5-5.4); RED CELL DISTRIBUTION WIDTH 18.2 % (11.6-16.5); WHITE BLOOD COUNT 5.3 X10^3/uL (3.6-10.0)
[2022-07-04 06:10] LABS: ALANINE AMINOTRANSFERASE 74 Units/L (12-78); ALBUMIN 2.7 g/dL (3.4-5.0); ALKALINE PHOSPHATASE 133 Units/L (46-116); ASPARTATE AMINO TRANSFERASE 218 Units/L (15-37); BLOOD UREA NITROGEN 23 mg/dL (7-18); CALCIUM 8.3 mg/dL (8.5-10.1); CARBON DIOXIDE 22.2 mmol/L (21-32); CHLORIDE 106 mmol/L (98-107); COR CA(FOR HYPOALB) 9.3 mg/dL (8.5-10.1); CREATININE 1.32 mg/dL (0.55-1.02); SODIUM 142 mmol/L (136-145); TOTAL PROTEIN 6.3 g/dL (6.4-8.2); eGFR NON BLACK RACES 40 (>60)
--- NOTE | 2022-07-04 07:47 | RAD ---
HISTORYFellSTUDYRight hip three viewsCOMPARISONNoneFINDINGSThere is no definite right hip fracture or dislocation or femoral head deformity. The submitted images are of limited technical quality and detail is suboptimal.IMPRESSIONNo acute findings, see above. Repeat/follow-up exam should be considered if symptoms persist and injury remains a clinical concern.Electronically signed by: MANUEL SEGUNDO (Jul 04, 2022 07:46:36)
[2022-07-04] MEDS: TYLENOL 500 MG TAB EXTRA STRENGTH PO PRN (09:18)
[2022-07-04] MEDS: PROTONIX INJ 40 MG VIAL IVP SCH (09:19)
--- NOTE | 2022-07-04 11:15 | DR.H&P ---
H&P History & Physical for Day of: H&P Date: 07/04/22 Chief Complaint Chief Complaint: fall, diarrhea, poor oral intake Allergies Allergies Allergy/AdvReac Type Severity Reaction Status Date / Time duloxetine [From Cymbalta] Allergy Verified 09/13/18 00:47 Tetanus Vaccines and Toxoid Allergy Verified 09/13/18 00:47 History of Present Illness History of Present Illness: Ms Davidson is a 89y/o female with a PMH of HTN, DM with neuropathy and hypothyroidism presented with a fall, diarrhea and poor oral intake. She fell on at home and has been complaining of right hip pain. She has also been having diarrhea and not eating well for the past day or so. She continues to have right hip pain now. She has not had any diarrhea since admission. She did eat some breakfast this morning. In the ER, right hip XR was negative for any fracture. CTAP did show enteritis. She had elevated CK and Lipase. Her potassium was also noted to be low. She was started on pain control and hydration. She had a temp of 103 overnight, blood Cx pending. Labs/imaging reviewed: K 3.0 Hgb 8.7 BUN/Cr 23/1.32 Glucose 95 AST 218 CK 944 Lipase 460 Plan: Due to patient's severe right hip pain, will get CT-pelvis to evaluate further. Change IVF to D5-NS-KCl. Start Zosyn, follow blood Cx. Continue pain control with morphine prn. Continue soft diet. Confirm home medications. Monitor AM labs/imaging. Fall precautions. Past Medical History Past Medical History: Diabetes, Hypertension and Hypothyroidism Past Surgical History Surgical History: Appendectomy, Cholecystectomy and Hysterectomy Family History Family Medical History: Cancer, Heart Failure and Hypertension Social History Does patient currently use any type of tobacco product: No Have you used tobacco products in the last 12 months: No Type of Tobacco Use: None Does any household member use tobacco: No Alcohol Use: None Drug Use: None Medications Home Medications: duloxetine [From Cymbalta] Allergy (Verified 09/13/18 00:47) Tetanus Vaccines and Toxoid Allergy (Verified 09/13/18 00:47) Labs Result Diagrams: 07/04/22 05:04 07/04/22 05:04 Labs: Laboratory WBC 5.3 X10^3/uL (3.6-10.0) 07/04/22 05:04 RBC 3.46 X10^6/uL (3.5-5.4) L 07/04/22 05:04 Hgb 8.7 g/dL (12.0-16.0) L 07/04/22 05:04 Hct 26.1 % (36.0-47.0) L 07/04/22 05:04 MCV 75.3 fL (80.0-100.0) L 07/04/22 05:04 MCH 25.0 pg (27.0-34.0) L 07/04/22 05:04 MCHC 33.3 g/dL (33.0-35.0) 07/04/22 05:04 RDW 18.2 % (11.6-16.5) H 07/04/22 05:04 Plt Count 135 X10^3/uL (150.0-450.0) L 07/04/22 05:04 MPV 10.0 fL (7.4-11.0) 07/04/22 05:04 Neut % (Auto) 86.2 % (42.0-75.0) H 07/04/22 05:04 Lymph % (Auto) 10.1 % (21.0-51.0) L 07/04/22 05:04 [place] % (Auto) 3.5 % (0.0-13.0) 07/04/22 05:04 Eos % (Auto) 0.1 % (0.9-2.9) L 07/04/22 05:04 Baso % (Auto) 0.1 % (0.2-1.0) L 07/04/22 05:04 Neut # (Auto) 4.6 x10^3/uL (2.2-4.8) 07/04/22 05:04 Lymph # (Auto) 0.5 X10^3/uL (1.3-2.9) L 07/04/22 05:04 [place] # (Auto) 0.2 x10^3/uL (0.3-0.8) L 07/04/22 05:04 Eos # (Auto) 0.0 x10^3/uL (0.0-0.2) 07/04/22 05:04 Baso # (Auto) 0.0 X10^3/uL (0.0-0.1) 07/04/22 05:04 Absolute Nucleated RBC 0.0 /100WBC 07/04/22 05:04 Sodium 142 mmol/L (136-145) 07/04/22 05:04 Corrected Sodium TNP 07/04/22 05:04 Potassium 3.0 mmol/L (3.5-5.1) L 07/04/22 05:04 Chloride 106 mmol/L (98-107) 07/04/22 05:04 Carbon Dioxide 22.2 mmol/L (21-32) 07/04/22 05:04 BUN 23 mg/dL (7-18) H 07/04/22 05:04 Creatinine 1.32 mg/dL (0.55-1.02) H 07/04/22 05:04 Est GFR (MDRD) Af Amer 49 (>60) L 07/04/22 05:04 Est GFR (MDRD) Non-Af 40 (>60) L 07/04/22 05:04 Glucose 85 mg/dL (65-99) 07/04/22 05:04 POC Glucose (mg/dL) 95 mg/dL (65-99) 07/04/22 05:15 Calcium 8.3 mg/dL (8.5-10.1) L 07/04/22 05:04 Corrected Calcium 9.3 mg/dL (8.5-10.1) 07/04/22 05:04 Magnesium 0.9 mg/dL (2.0-2.9) L 07/04/22 18:38 Total Bilirubin 0.60 mg/dL (0.2-1.0) 07/04/22 05:04 AST 218 Units/L (15-37) H 07/04/22 05:04 ALT 74 Units/L (12-78) 07/04/22 05:04 Alkaline Phosphatase 133 Units/L (46-116) H 07/04/22 05:04 Creatine Kinase 944 Units/L (26-192) H 07/03/22 18:38 Troponin I High Sens 47.7 ng/L (4.0-60.0) 07/03/22 18:38 Total Protein 6.3 g/dL (6.4-8.2) L 07/04/22 05:04 Albumin 2.7 g/dL (3.4-5.0) L 07/04/22 05:04 Globulin 3.6 g/dL (2.5-4.5) 07/04/22 05:04 Albumin/Globulin Ratio 0.8 Ratio (1.1-2.1) L 07/04/22 05:04 Amylase 83 Units/L (25-115) 07/03/22 18:38 Lipase 460 Units/L (73-393) H 07/03/22 18:38 Specimen Type Random urine 07/03/22 19:32 Urine Color Yellow (YELLOW) 07/03/22 19:32 Urine Appearance Clear (CLEAR) 07/03/22 19:32 Urine pH 6.0 (5.0 - 8.0) 07/03/22 19:32 Ur Specific [place] 1.020 (1.000-1.030) 07/03/22 19:32 Urine Protein 2+ (NEGATIVE) 07/03/22 19:32 Urine Glucose (UA) Negative (NEGATIVE) 07/03/22 19:32 Urine Ketones Negative (NEGATIVE) 07/03/22 19:32 Urine Blood 1+ (NEGATIVE) 07/03/22 19:32 Urine Nitrite Negative (NEGATIVE) 07/03/22 19:32 Urine Bilirubin Negative (NEGATIVE) 07/03/22 19:32 Urine Urobilinogen Normal (NORMAL) 07/03/22 19:32 Ur Leukocyte Esterase Negative (NEGATIVE) 07/03/22 19:32 Urine RBC None seen /HPF (0-3) 07/03/22 19:32 Urine WBC None seen /HPF (0-5) 07/03/22 19:32 Ur Squamous Epith Cells Rare /HPF (NEGATIVE) 07/03/22 19:32 Urine Bacteria Negative /HPF (NEGATIVE) 07/03/22 19:32 Fine Granular Casts Few /LPF (NEGATIVE) 07/03/22 19:32 Ur Culture Indicated? No/not indicated 07/03/22 19:32 Review of Systems Constitutional: Fever and Weakness Eyes: No Symptoms Reported Respiratory: No Symptoms Reported Cardiovascular: No Symptoms Reported Gastrointestinal: Diarrhea Musculoskeletal: Other (R hip pain) Skin: Bruising Neurological: No Symptoms Reported Physical Exam Vital Signs: Temperature 98.4 F Pulse Rate [Brachial] 80 Pulse Rate 82 Respiratory Rate 20 Blood Pressure [Left Arm] 111/59 Blood Pressure [Right Arm] 149/65 Blood Pressure 170/70 O2 Sat by Pulse Oximetry 97 Oriented: Normal Nose: Normal Respiratory: Diminished Throughout Cardiovascular: Normal Auscultation: Bowel Sounds: Normal Palpation: Normal Tenderness: Normal Skin: Bruising Musculoskeletal: Right, Hip, Tender and Motor Deficit Psychiatric: Anxiety Mood Description: Anxious Affect: Normal Speech Pattern: Clear and Appropriate Assessment/Plan (1) Acute right hip pain: Status: Acute (2) Fall: Status: Acute (3) Generalized weakness: Status: Acute (4) Enteritis: Status: Acute (5) Hypokalemia: Status: Acute (6) Hypothyroidism: Status: Chronic (7) Diabetes mellitus, type 2: Qualifiers: Diabetes mellitus complication detail: with foot ulcer Diabetes mellitus complication status: with skin complications Qualified Code(s): E11.621 - Type 2 diabetes mellitus with foot ulcer Status: Chronic Review H&P Reviewed: Yes Patient was examined?: Yes
[2022-07-04] MEDS ORDERED: NovoLIN R (or HumuLIN R) SUBCUT PRN (11:47)
[2022-07-04] MEDS: ZANAFLEX PO SCH ×2 (12:27→20:50)
[2022-07-04] MEDS: ZOSYN VIAL 3.375 GRAMS 3.375 G in NS 100 ML IV 100 ML IV SCH ×3 (13:09→22:18)
[2022-07-04] MEDS: D5 NS + KCL 20 MEQ/L 1,000 ML IV SCH (14:30)
[2022-07-04] MEDS: MORPHINE SULFATE INJ 2 MG INJ IVP PRN ×2 (16:00→22:27)
[2022-07-04 17:38] VITALS: BMI 27.8
--- NOTE | 2022-07-04 18:13 | CT ---
EXAM: CT OF THE PELVIC BONESHISTORY: Right hip pain status post fall injury.TECHNIQUE: Spiral axial CT images are obtained through the pelvis, hips, and coccygeal regions. Sagittal and coronal reformatted images are reconstructed.DOSIMETRY: Total DLP 230.32 mGycm; CTDI 7.02 mGyCOMPARISON: None available.FINDINGS:There is no evidence for a pelvic, hip, or sacrococcygeal fracture, or joint subluxation, or dislocation. No focal bony erosion or sclerosis is seen.There is mild osteoarthritis of both hips marked by joint space narrowings. There is no evidence for avascular necrosis of the hips. There is osteoarthritis of the SI joints marked by joint space narrowings and mild marginal osteophytosis. No radiodense soft tissue abnormality or foreign body is noted.L3-S1: Severe multilevel DDD marked by severe disc space narrowings, vacuum disc phenomenon, and prominent disc bulge/marginal osteophyte complexes, with potential for neural impingements.IMPRESSION:1. No acute fracture or joint subluxation/dislocation seen.2. 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 L3-S1: Severe multilevel DDD marked by severe disc space narrowings, vacuum disc phenomenon, and prominent disc bulge/marginal osteophyte complexes, with potential for neural impingements.4. Unremarkable CT of the pelvic bones as described above.5. Consider follow-up evaluation with MRI and/or nuclear medicine bone scan if symptoms persist or worsen.Electronically signed by: Corine Chisholm (Jul 04, 2022 18:11:45)
[2022-07-04] MEDS: NovoLIN R (or HumuLIN R) SUBCUT PRN (20:51)
[2022-07-04] MEDS: SNACK - Diabetic Appropriate PO SCH (21:27)
[2022-07-05] MEDS: D5 NS + KCL 20 MEQ/L 1,000 ML IV SCH ×3 (00:22→12:25)
[2022-07-05] MEDS: ZOSYN VIAL 3.375 GRAMS 3.375 G in NS 100 ML IV 100 ML IV SCH ×3 (05:40→22:52)
[2022-07-05 06:17] LABS: BASOPHILS % (AUTO) 0.2 % (0.2-1.0); HEMATOCRIT 24.8 % (36.0-47.0); HEMOGLOBIN 8.3 g/dL (12.0-16.0); LYMPHOCYTES # (AUTO) 0.5 X10^3/uL (1.3-2.9); LYMPHOCYTES % (AUTO) 10.7 % (21.0-51.0); MEAN CORPUSCULAR HEMOGLOBIN 25.4 pg (27.0-34.0); MEAN CORPUSCULAR HGB CONC 33.5 g/dL (33.0-35.0); MEAN CORPUSCULAR VOLUME 75.8 fL (80.0-100.0); MEAN PLATELET VOLUME 9.4 fL (7.4-11.0); MONOCYTES # (AUTO) 0.1 x10^3/uL (0.3-0.8); MONOCYTES % (AUTO) 3.2 % (0.0-13.0); NEUTROPHILS # (AUTO) 3.7 x10^3/uL (2.2-4.8); NEUTROPHILS % (AUTO) 85.9 % (42.0-75.0); RED BLOOD COUNT 3.28 X10^6/uL (3.5-5.4); RED CELL DISTRIBUTION WIDTH 18.4 % (11.6-16.5); WHITE BLOOD COUNT 4.3 X10^3/uL (3.6-10.0)
[2022-07-05 06:21] LABS: ALANINE AMINOTRANSFERASE 49 Units/L (12-78); ALBUMIN 2.4 g/dL (3.4-5.0); ALKALINE PHOSPHATASE 107 Units/L (46-116); ASPARTATE AMINO TRANSFERASE 80 Units/L (15-37); BLOOD UREA NITROGEN 24 mg/dL (7-18); CALCIUM 8.5 mg/dL (8.5-10.1); CARBON DIOXIDE 20.4 mmol/L (21-32); CHLORIDE 105 mmol/L (98-107); COR CA(FOR HYPOALB) 9.8 mg/dL (8.5-10.1); CREATINE KINASE 989 Units/L (26-192); CREATININE 1.51 mg/dL (0.55-1.02); MAGNESIUM 2.3 mg/dL (2.0-2.9); SODIUM 139 mmol/L (136-145); TOTAL PROTEIN 5.8 g/dL (6.4-8.2); eGFR NON BLACK RACES 34 (>60)
[2022-07-05] MEDS: ZANAFLEX PO SCH ×2 (09:21→20:29)
[2022-07-05] MEDS: SYNTHROID 88 mcg TAB PO SCH (09:21)
[2022-07-05] MEDS: PROTONIX INJ 40 MG VIAL IVP SCH (09:21)
[2022-07-05] MEDS: VALTREX PO SCH ×2 (09:21→20:29)
[2022-07-05] MEDS: ZESTRIL TAB 5 MG PO SCH (09:21)
[2022-07-05] MEDS: NYSTATIN POWDER TOP SCH ×2 (09:22→20:29)
[2022-07-05] MEDS: NovoLIN R (or HumuLIN R) SUBCUT PRN ×3 (12:22→20:36)
[2022-07-05] MEDS: ZOVIRAX VIAL 500 MG 500 MG in NS 100 ML IV 100 ML IV SCH ×3 (14:06→21:33)
[2022-07-05] MEDS: MORPHINE SULFATE INJ 2 MG INJ IVP PRN (16:44)
[2022-07-05] MEDS: SNACK - Diabetic Appropriate PO SCH (20:29)
[2022-07-06] MEDS: TYLENOL 500 MG TAB EXTRA STRENGTH PO PRN (04:12)
[2022-07-06] MEDS: ZOVIRAX VIAL 500 MG 500 MG in NS 100 ML IV 100 ML IV SCH ×3 (05:16→22:00)
[2022-07-06] MEDS: D5 NS + KCL 20 MEQ/L 1,000 ML IV SCH ×2 (05:17→16:45)
[2022-07-06] MEDS: ZOSYN VIAL 3.375 GRAMS 3.375 G in NS 100 ML IV 100 ML IV SCH ×3 (05:17→22:00)
[2022-07-06 05:41] LABS: BASOPHILS % (AUTO) 0.2 % (0.2-1.0); EOSINOPHILS % (AUTO) 0.1 % (0.9-2.9); HEMATOCRIT 22.7 % (36.0-47.0); HEMOGLOBIN 7.6 g/dL (12.0-16.0); LYMPHOCYTES # (AUTO) 0.7 X10^3/uL (1.3-2.9); LYMPHOCYTES % (AUTO) 12.7 % (21.0-51.0); MEAN CORPUSCULAR HGB CONC 33.3 g/dL (33.0-35.0); MEAN CORPUSCULAR VOLUME 75.2 fL (80.0-100.0); MEAN PLATELET VOLUME 9.8 fL (7.4-11.0); MONOCYTES # (AUTO) 0.2 x10^3/uL (0.3-0.8); MONOCYTES % (AUTO) 3.1 % (0.0-13.0); NEUTROPHILS # (AUTO) 4.7 x10^3/uL (2.2-4.8); NEUTROPHILS % (AUTO) 83.9 % (42.0-75.0); RED BLOOD COUNT 3.02 X10^6/uL (3.5-5.4); RED CELL DISTRIBUTION WIDTH 18.4 % (11.6-16.5); WHITE BLOOD COUNT 5.6 X10^3/uL (3.6-10.0)
[2022-07-06 05:55] LABS: CALCIUM 8.3 mg/dL (8.5-10.1); CARBON DIOXIDE 19.1 mmol/L (21-32); COR CA(FOR HYPOALB) 9.9 mg/dL (8.5-10.1); CREATININE 2.44 mg/dL (0.55-1.02); TOTAL PROTEIN 5.4 g/dL (6.4-8.2)
[2022-07-06] MEDS: NovoLIN R (or HumuLIN R) SUBCUT PRN ×3 (06:13→17:39)
[2022-07-06] MEDS: SYNTHROID 88 mcg TAB PO SCH (10:31)
[2022-07-06] MEDS: VALTREX PO SCH ×2 (10:31→21:00)
[2022-07-06] MEDS: ZANAFLEX PO SCH ×2 (10:32→21:00)
[2022-07-06] MEDS: PROTONIX INJ 40 MG VIAL IVP SCH (10:32)
[2022-07-06] MEDS: ZESTRIL TAB 5 MG PO SCH (10:32)
[2022-07-06] MEDS: NYSTATIN POWDER TOP SCH ×2 (10:32→21:00)
--- NOTE | 2022-07-06 13:24 | PCM.PROG ---
Progress Note - Progress Note for Day of Date of Exam: 07/05/22 - Subjective Subjective: IS A 89 YEAR OLD PATIENT OF OURS. SHE PRESENTED TO THE ER VIA EMS ON 07/03 AFTER HAVING MULTIPLE FALLS AT HOME. PATIENT COMPLAINED OF MODERATE RIGHT HIP PAIN, DIARRHEA, AND POOR INTAKE. SHE WAS ADMITTED TO THE HOSPITAL OBSERVATION STATUS FOR TREATMENT OF ENTERITIS, DEHYDRATION, ACUTE RIGHT HIP PAIN, FREQUENT FALLS, RHABDOMYOLYSIS, GENERALIZED WEAKNESS, HYPOKALEMIA. HER PMH INCLUDES: DM II, HTN, HYPOTHYROIDISM, APPENDECTOMY, CHOLECYSTECTOMY, AND HYSTERECTOMY. PELVIC CT ON ADMISSION ONLY REVEALED SEVERE MULTILEVEL DDD WITH POTENTIAL FOR NEURAL IMPINGEMENTS. THE ABDOMEN/PELVIS CT ON ADMISSION DID COUNTER CASER ON THE LOWER LUNG BASES AND REVEALED NONSPECIFIC BIBASILAR OPACITY WHICH COULD BE FIBROSIS OR SEQUELA OF VIRAL INFECTION. TODAY, SHE IS ALERT AND ORIENTED, LYING IN BED ON MORNING ROUNDS. SHE COMPLAINS OF RIGHT HIP PAIN AND GENERALIZED WEAKNESS. ON EXAMINATION, HEART IS REGULAR IN RATE AND RHYTHM. BILATERAL LUNGS ARE NOTED WITH DIMINISHED LUNG SOUNDS THROUGHOUT. ABDOMEN IS ROUND, SOFT, AND NOTED WITH MILD LOWER QUADRANT TENDERNESS. NORMAL BOWEL SOUNDS NOTED IN ALL QUADRANTS. DIARRHEA HAS SLOWED DOWN. THERE IS A BLOTCHY AREA OR REDNESS NOTED TO THE RIGHT HIP. SHE COMPLAINS OF A BURNING TYPE SENSATION. NO DRAINAGE NOTED FROM SITE. TRACE LOWER EXTREMITY EDEMA NOTED. THERE IS SCATTERED BRUISING TO UPPER AND LOWER EXTREMITIES. HER VITALS THIS MORNING ARE: 98.5-81-20-91%-153/83. LABS WERE OBTAINED. WBC 4.3, RBC 3.28, HGB 8.3, HCT 24.8, PLT COUNT 110, SODIUM 139, POTASSIUM 3.4, CARBON DIXOIDE 20.4, BUN 24, CREATININE 1.51, GLUCOSE 105, CALCIUM 8.5, MAGNESIUM 2.3, AST 80, ALT 49, ALK PHOS 107, CREATINE KINASE 989, TOTAL PROTEIN 5.8, ALBUMIN 2.4. BLOOD CULTURES ARE PENDING. SHE IS CURRENTLY RECEIVING D5NS WITH 20MEQ KCL AT 100ML/HR, ZOSYN 3.375G IV TID, THE POTASSIUM AND MAGNESIUM PROTOCOLS, OTBS ACHS, HUMULIN R SLIDING SACLE, TYLENOL 1G PO Q6H PRN, MORPHINE SULFATE 4MG IV Q6H PRN, ZOFRAN 4MG IV Q6H PRN, PROTONIX 40MG IV DAILY. HER HOME MEDICATIONS OF SYNTH ROID, ZESTRIL, LYRICA, AND ZANAFLEX WERE RESUMED. TODAY, WE WILL ADD ACYCLOVIR 500 MG IV Q8H AND VALTREX 1G PO BID FOR TREATMENT OF SUSPECTED SHINGLES TO THE RIGHT HIP. WE WILL HAVE PT/OT WORK WITH HER. OTHERWISE, WE WILL FOLLOW-UP WITH AM LABS AND CONTINUE TO MONITOR. TIME SPENT ON CLINICAL ASSESSMENT, REVIWING LABS AND IMAGING, DECISION MAKING, AND DOCUMENTATION GREATER THAN 45 MINUTES. - Past Medical Family Social History Past Med/Fam/Surg Hx: No changes since H&P Allergies: Allergies duloxetine [From Cymbalta] Allergy (Verified 09/13/18 00:47) Tetanus Vaccines and Toxoid Allergy (Verified 09/13/18 00:47) - Review of Systems ROS: No change since H&P - Vital Signs and I&O's Vital Signs: Temperature 98.4 F Pulse Rate [Brachial] 47 Pulse Rate 82 Respiratory Rate 22 Blood Pressure [Left Arm] 128/65 Blood Pressure [Right Arm] 127/60 Blood Pressure 170/70 O2 Sat by Pulse Oximetry 92 Intake and Output: Intake & Output 07/04/22 07/05/22 07/06/22 07/07/22 11:59 11:59 11:59 11:59 Intake Total 781 / 781 2422 / 2422 2530 / 2530 Balance 781 / 781 2422 / 2422 2530 / 2530 - Physical Exam Oriented: Normal Eyes: Normal Ear: Normal Nose: Normal Throat: Normal Respiratory: Generalized, Diminished Cardiovascular: Normal : Normal Auscultation: Bowel Sounds: Normal Palpation: Normal Tenderness: RLQ, LLQ, Mild Skin: Bruising Musculoskeletal: Right, Hip, Tender, Motor Deficit Psychiatric: Anxiety Mood Description: Anxious Affect: Normal Speech Pattern: Clear, Appropriate - Laboratory and Diagnostics Result Diagrams: 07/06/22 05:27 07/06/22 05:27 Labs: 07/04/22 05:23 Blood Blood Culture - Preliminary 07/04/22 05:04 Blood Blood Culture - Preliminary Laboratory WBC 5.6 X10^3/uL (3.6-10.0) 07/06/22 05:27 RBC 3.02 X10^6/uL (3.5-5.4) L 07/06/22 05:27 Hgb 7.6 g/dL (12.0-16.0) L 07/06/22 05:27 Hct 22.7 % (36.0-47.0) L 07/06/22 05:27 MCV 75.2 fL (80.0-100.0) L 07/06/22 05:27 MCH 25.0 pg (27.0-34.0) L 07/06/22 05:27 MCHC 33.3 g/dL (33.0-35.0) 07/06/22 05:27 RDW 18.4 % (11.6-16.5) H 07/06/22 05:27 Plt Count 125 X10^3/uL (150.0-450.0) L 07/06/22 05:27 MPV 9.8 fL (7.4-11.0) 07/06/22 05:27 Neut % (Auto) 83.9 % (42.0-75.0) H 07/06/22 05:27 Lymph % (Auto) 12.7 % (21.0-51.0) L 07/06/22 05:27 [place] % (Auto) 3.1 % (0.0-13.0) 07/06/22 05:27 Eos % (Auto) 0.1 % (0.9-2.9) L 07/06/22 05:27 Baso % (Auto) 0.2 % (0.2-1.0) 07/06/22 05:27 Neut # (Auto) 4.7 x10^3/uL (2.2-4.8) 07/06/22 05:27 Lymph # (Auto) 0.7 X10^3/uL (1.3-2.9) L 07/06/22 05:27 [place] # (Auto) 0.2 x10^3/uL (0.3-0.8) L 07/06/22 05:27 Eos # (Auto) 0.0 x10^3/uL (0.0-0.2) 07/06/22 05:27 Baso # (Auto) 0.0 X10^3/uL (0.0-0.1) 07/06/22 05:27 Absolute Nucleated RBC 0.0 /100WBC 07/06/22 05:27 Sodium 137 mmol/L (136-145) 07/06/22 05:27 Corrected Sodium 141 mmol/L (136-145) 07/06/22 05:27 Potassium 4.0 mmol/L (3.5-5.1) 07/06/22 05:27 Chloride 106 mmol/L (98-107) 07/06/22 05:27 Carbon Dioxide 19.1 mmol/L (21-32) L 07/06/22 05:27 BUN 32 mg/dL (7-18) H 07/06/22 05:27 Creatinine 2.44 mg/dL (0.55-1.02) H 07/06/22 05:27 Est GFR (MDRD) Af Amer 24 (>60) L 07/06/22 05:27 Est GFR (MDRD) Non-Af 20 (>60) L 07/06/22 05:27 Glucose 266 mg/dL (65-99) H 07/06/22 05:27 POC Glucose (mg/dL) 216 mg/dL (65-99) H 07/06/22 11:41 Calcium 8.3 mg/dL (8.5-10.1) L 07/06/22 05:27 Corrected Calcium 9.9 mg/dL (8.5-10.1) 07/06/22 05:27 Magnesium 2.3 mg/dL (2.0-2.9) 07/05/22 05:35 Total Bilirubin 0.60 mg/dL (0.2-1.0) 07/06/22 05:27 AST 45 Units/L (15-37) H 07/06/22 05:27 ALT 36 Units/L (12-78) 07/06/22 05:27 Alkaline Phosphatase 82 Units/L (46-116) 07/06/22 05:27 Creatine Kinase 989 Units/L (26-192) H 07/05/22 05:35 Troponin I High Sens 47.7 ng/L (4.0-60.0) 07/03/22 18:38 Total Protein 5.4 g/dL (6.4-8.2) L 07/06/22 05:27 Albumin 2.0 g/dL (3.4-5.0) L 07/06/22 05:27 Globulin 3.4 g/dL (2.5-4.5) 07/06/22 05:27 Albumin/Globulin Ratio 0.6 Ratio (1.1-2.1) L 07/06/22 05:27 Amylase 83 Units/L (25-115) 07/03/22 18:38 Lipase 460 Units/L (73-393) H 07/03/22 18:38 Specimen Type Random urine 07/03/22 19:32 Urine Color Yellow (YELLOW) 07/03/22 19:32 Urine Appearance Clear (CLEAR) 07/03/22 19:32 Urine pH 6.0 (5.0 - 8.0) 07/03/22 19:32 Ur Specific [place] 1.020 (1.000-1.030) 07/03/22 19:32 Urine Protein 2+ (NEGATIVE) 07/03/22 19:32 Urine Glucose (UA) Negative (NEGATIVE) 07/03/22 19:32 Urine Ketones Negative (NEGATIVE) 07/03/22 19:32 Urine Blood 1+ (NEGATIVE) 07/03/22 19:32 Urine Nitrite Negative (NEGATIVE) 07/03/22 19:32 Urine Bilirubin Negative (NEGATIVE) 07/03/22 19:32 Urine Urobilinogen Normal (NORMAL) 07/03/22 19:32 Ur Leukocyte Esterase Negative (NEGATIVE) 07/03/22 19:32 Urine RBC None seen /HPF (0-3) 07/03/22 19:32 Urine WBC None seen /HPF (0-5) 07/03/22 19:32 Ur Squamous Epith Cells Rare /HPF (NEGATIVE) 07/03/22 19:32 Urine Bacteria Negative /HPF (NEGATIVE) 07/03/22 19:32 Fine Granular Casts Few /LPF (NEGATIVE) 07/03/22 19:32 Ur Culture Indicated? No/not indicated 07/03/22 19:32 - Plan (1) Enteritis Status: Acute Plan: D5NS WITH 20MEQ KCL AT 100ML/HR, ZOSYN 3.375G IV TID, ACYCLOVIR 500 MG IV Q8H, VALTREX 1G PO BID, THE POTASSIUM AND MAGNESIUM PROTOCOLS, OTBS ACHS, HUMULIN R SLIDING SACLE, TYLENOL 1G PO Q6H PRN, MORPHINE SULFATE 4MG IV Q6H PRN, ZOFRAN 4MG IV Q6H PRN, PROTONIX 40MG IV DAILY. HER HOME MEDICATIONS OF SYNTHROID, ZESTRIL, LYRICA, AND ZANAFLEX WERE RESUMED (2) Dehydration Status: Acute (3) Rhabdomyolysis Status: Acute Qualifiers: Rhabdomyolysis type: traumatic Encounter type: initial encounter Qualified Code(s): T79.6XXA - Traumatic ischemia of muscle, initial encounter (4) Hip pain, right Status: Acute (5) Frequent falls Status: Acute (6) Generalized weakness Status: Acute (7) Hypokalemia Status: Acute (8) Shingles Status: Acute Qualifiers: Herpes zoster complications: without complications Qualified Code(s): B02.9 - Zoster without complications
--- NOTE | 2022-07-06 13:25 | RAD ---
HISTORYSOB, FEVERSTUDYCHEST, 1 [id number] AND TUBES: NoneHEART/ PULMONARY VASCULATURE: Heart is enlarged and pulmonary vasculature congested.LUNGS/ PLEURA: Moderate multifocal interstitial and airspace disease throughout the lungs, slightly greater on the right. There is no sizable pleural effusion. No pneumothoraxIMPRESSIONModerate multifocal interstitial and airspace opacities, may reflect pulmonary edema or multifocal pneumonia.Electronically signed by: Clinton Herron (Jul 06, 2022 13:23:48)
[2022-07-06] MEDS ORDERED: PULMICORT NEB TX 0.5 MG NEB SCH (16:30)
[2022-07-06] MEDS ORDERED: LEVAQUIN PREMIX IV 250 MG 250 MG/50 ML BAG IV SCH (17:00)
[2022-07-06] MEDS ORDERED: XOPENEX 1.25 MG/3 ML NEBULE NEB SCH (17:00)
[2022-07-06] MEDS: TYLENOL 325 MG TAB PO PRN ×2 (20:00→20:12)
[2022-07-06] MEDS: SNACK - Diabetic Appropriate PO SCH (20:12)
[2022-07-06] MEDS ORDERED: TYLENOL SUPP 650 MG PR PRN (23:58)
[2022-07-07] MEDS: D5 NS + KCL 20 MEQ/L 1,000 ML IV SCH (03:00)
[2022-07-07 04:56] VITALS: BP 146/66
[2022-07-07 05:08] LABS: BASOPHILS % (AUTO) 0.2 % (0.2-1.0); EOSINOPHILS % (AUTO) 0.1 % (0.9-2.9); HEMATOCRIT 27.9 % (36.0-47.0); HEMOGLOBIN 8.6 g/dL (12.0-16.0); LYMPHOCYTES # (AUTO) 1.5 X10^3/uL (1.3-2.9); LYMPHOCYTES % (AUTO) 7.1 % (21.0-51.0); MEAN CORPUSCULAR HEMOGLOBIN 24.4 pg (27.0-34.0); MEAN CORPUSCULAR HGB CONC 30.8 g/dL (33.0-35.0); MEAN CORPUSCULAR VOLUME 79.1 fL (80.0-100.0); MEAN PLATELET VOLUME 9.8 fL (7.4-11.0); MONOCYTES # (AUTO) 0.4 x10^3/uL (0.3-0.8); MONOCYTES % (AUTO) 2.1 % (0.0-13.0); NEUTROPHILS # (AUTO) 19.2 x10^3/uL (2.2-4.8); NEUTROPHILS % (AUTO) 90.5 % (42.0-75.0); RED BLOOD COUNT 3.52 X10^6/uL (3.5-5.4)
[2022-07-07 05:17] LABS: ALBUMIN 1.9 g/dL (3.4-5.0); COR CA(FOR HYPOALB) 10.7 mg/dL (8.5-10.1); CREATININE 3.36 mg/dL (0.55-1.02)
[2022-07-07 05:29] LABS: BAND NEUTROPHILS % 3 % (0-10); OVALOCYTES PRESENT; PLATELET MORPHOLOGY COMMENT NORMAL (NORMAL)
[2022-07-07 05:30] LABS: BURR CELLS PRESENT; WHITE BLOOD COUNT 21.2 X10^3/uL (3.6-10.0)
[2022-07-07] MEDS: ZOVIRAX VIAL 500 MG 500 MG in NS 100 ML IV 100 ML IV SCH (05:51)
[2022-07-07] MEDS: ZOSYN VIAL 3.375 GRAMS 3.375 G in NS 100 ML IV 100 ML IV SCH (05:51)
[2022-07-07] MEDS ORDERED: VALTREX PO SCH (09:00)
[2022-07-07] MEDS ORDERED: ZOVIRAX VIAL 500 MG 500 MG in NS 100 ML IV 100 ML IV SCH (09:00)
[2022-07-07] MEDS ORDERED: ZOSYN VIAL 3.375 GRAMS 3.375 G in NS 100 ML IV 100 ML IV SCH (09:00)
[2022-07-08] MEDS ORDERED: LEVAQUIN PREMIX IV 250 MG 250 MG/50 ML BAG IV SCH (09:00)
== END 2022-07-07 09:16 | disposition expired ==
LOC: ER 17:25 → MED/SURG 17:25
PROVIDERS: ADMIT Family Medicine; ATTEND Internal Medicine
DX: K52.89 Other specified noninfective gastroenteritis and colitis; R60.0 Localized edema; M25.551 Pain in right hip; W18.39XA Other fall on same level, initial encounter; R29.6 Repeated falls; R10.84 Generalized abdominal pain; R53.1 Weakness; R19.7 Diarrhea, unspecified; R26.89 Other abnormalities of gait and mobility; U07.1 COVID-19; E87.6 Hypokalemia; R94.31 Abnormal electrocardiogram [ECG] [EKG]; E86.0 Dehydration; I10 Essential (primary) hypertension; M62.82 Rhabdomyolysis; E11.621 Type 2 diabetes mellitus with foot ulcer; I46.9 Cardiac arrest, cause unspecified; E03.8 Other specified hypothyroidism; R13.11 Dysphagia, oral phase; E11.65 Type 2 diabetes mellitus with hyperglycemia; B02.8 Zoster with other complications